=== PATIENT | male | born 1960 | race Caucasian/White ===

== ENCOUNTER 2017-01-25 08:53 | Day surgery (SDC) | payer BC ==
[2017-01-22 15:58] VITALS: BMI 31.4
[~2017-01-25 08:53] MED LIST: LACTATED RINGERS 1,000 ML IV SCH; LIDOCAINE 1% 20 ML VIAL (10MG/ML) FOR IV START INTRADERMA PRN
[2017-01-25 10:08] VITALS: RESP 16; TEMP 98
[2017-01-25] MEDS ORDERED: LIDOCAINE 1% INJ 10MG/ML (20 ML MDV) ONE (10:29)
[2017-01-25] MEDS ORDERED: PROPOFOL 10 MG/ML 20 ML VIAL IV ONE (10:29)
--- NOTE | 2017-01-25 10:59 | P.PCN ---
Date of Procedure: 01/25/17 Procedure(s) Performed: Procedure: Esophagogastroduodenoscopy and biopsy. Preoperative diagnosis: Chronic reflux symptoms with nausea and vomiting. Postoperative diagnosis: 1. Sliding hiatal hernia with LA grade B distal esophagitis. 2. Mild antral gastritis. 3. Multiple biopsies obtained from the duodenum, antrum and esophagus. Preparation and sedation: Was provided by anesthesia. Brief clinical history: The patient is a 56-year-old male who I have evaluated in the office last month in regards to intermittent vomiting for the prior 5 months. The patient has chronic reflux of several years duration and is on medical therapy. He usually vomits within 90 minutes to 2 hours after he eats. When I saw him in the office towards the end of last month he has not have any episode for one and a half weeks, however, he has had 2 episodes since that time. No consistent pattern or triggers. He quit smoking 40 years ago and quit chewing tobacco 6 months ago. He drinks 1-2 beers a week. This evaluation is to assess for esophagitis or complicated reflux disease or other pathology. Procedure: With the patient on his left lateral decubitus position and after informed consent and adequate sedation, I passed the Olympus-GIF 160 video upper endoscope through the cricopharyngeus down the esophagus. GE junction was around 40 cm from the incisors and there was a small sliding hiatal hernia. The distal esophagus showed multiple scattered short linear erosions consistent with LA grade B esophagitis but there were no strictures or Judge' s esophagus. The endoscope was then passed into the stomach which was insufflated with air and inspected in detail including the retroflex view in the cardia. There was some mottling and erythema in the antrum but no ulcers or erosions. Pyloric channel, duodenal bulb, post bulbar area and descending duodenum appeared within normal limits. I obtained multiple biopsies from the duodenum, antrum and esophagus then the endoscope was withdrawn. The patient tolerated the procedure well. Plan: The patient was reassured. I will await biopsy results and make additional recommendations. I will keep you updated on his progress.
[2017-01-25 11:15] VITALS: BP 130/87; PULSE 77
== END 2017-01-25 11:52 | disposition home or self-care (01) ==
LOC: ORWHC2ENDO 08:53
DX: K21.0 Gastro-esophageal reflux disease with esophagitis (principal); K29.50 Unspecified chronic gastritis without bleeding; K22.10 Ulcer of esophagus without bleeding; K44.9 Diaphragmatic hernia without obstruction or gangrene; I10 Essential (primary) hypertension; J45.909 Unspecified asthma, uncomplicated; Z79.1 Long term (current) use of non-steroidal anti-inflammatories (NSAID); Z79.82 Long term (current) use of aspirin; Z79.899 Other long term (current) drug therapy; Z87.891 Personal history of nicotine dependence
CPT/HCPCS: 43239; 88305; 88342; J2001; J2704